=== PATIENT | female | born 1930 | race Caucasian/White ===

== ENCOUNTER 2016-09-12 16:04 | Inpatient (IN) | payer MEDICARE, MEDICAID ==
[~2016-09-12] VITALS: Ht 144.8 cm; Wt 49.4 kg
[~2016-09-12 16:04] MED LIST: ARICEPT10 MG PO; ASPIRIN CHEWABL81 MG PO; CALTRATE 600 +1 EAC1 PO; CLARITIN10 M2 PO; COMBIGAN EYE DRO5 ML OU; COZAAR 50MG TAB50 MG PO; ELIQUIS 2.5 MG2.5 MG PO; GLUCOTROL XL 22.5 MG PO; HYDRALAZINE HCL25 MG PO; IRON325 MG PO; JANUVIA 100 MG100 MG PO; LANTUS100 UNIT/1 SQ; LASIX 40 MG TAB40 MG PO; LIPITOR40 MG PO; LOFIBRA160 MG PO; LOVAZA1 GM PO; METOPROLOL SUC100 MG PO; METOPROLOL TART25 MG PO; MOBIC15 MG PO; NEURONTIN 100100 MG PO; NORVASC 5 MG TAB5 MG PO; PREVACID30 MG PO; RANEXA500 MG PO; SYNTHROID100 MCG PO; SYNTHROID88 MCG PO; TOLTERODINE TART4 MG PO; VITAMIN D2000 UNIT PO
[2016-09-12 17:26] LABS: HEMOGLOBIN 15.2 gm/dl (12.3-15.3); RED BLOOD COUNT 5.05 M/UL (4.00-5.10); WHITE BLOOD COUNT 7.1 K/UL (4.5-11.0)
[2016-09-12 17:55] LABS: BUN/CREATININE RATIO 28 (0-10)
[2016-09-12] MEDS ORDERED: ARICEPT23 MG PO (23:42)
[2016-09-12] MEDS ORDERED: ECOTRIN81 MG PO (23:45)
[2016-09-12] MEDS ORDERED: CRESTOR40 MG PO (23:46)
[2016-09-12] MEDS ORDERED: METFORMIN HCL500 MG PO (23:46)
[2016-09-12] MEDS ORDERED: NAMENDA XR7 MG PO (23:46)
[2016-09-12] MEDS ORDERED: TYLENOL W/CODEIN1 E1 PO (23:47)
[2016-09-12] MEDS ORDERED: VITAMIN D2000 UNIT PO (23:47)
[2016-09-12] MEDS ORDERED: IMDUR ER TAB 3030 MG PO (23:48)
[2016-09-13] MEDS ORDERED: LANSOPRAZOLE30 MG PO (00:07)
[2016-09-13 04:23] LABS: HEMOGLOBIN 14.3 gm/dl (12.3-15.3); RED BLOOD COUNT 4.8 M/UL (4.00-5.10); WHITE BLOOD COUNT 7.3 K/UL (4.5-11.0)
[2016-09-13 04:58] LABS: BUN/CREATININE RATIO 33 (0-10)
[2016-09-13 12:08] LABS: HEMOGLOBIN 13.8 gm/dl (12.3-15.3)
[2016-09-14 04:27] LABS: HEMOGLOBIN 13.4 gm/dl (12.3-15.3); RED BLOOD COUNT 4.51 M/UL (4.00-5.10); WHITE BLOOD COUNT 6.3 K/UL (4.5-11.0)
[2016-09-14 04:31] LABS: BUN/CREATININE RATIO 20 (0-10)
[2016-09-15] MEDS ORDERED: GLUCERNA237 ML PO (11:24)
[2016-09-30] MEDS ORDERED: FOSAMAX70 MG PO (00:34)
== END 2016-09-15 09:00 | disposition home health service (06) | DRG 392 ==
LOC: ER1 16:04 → ZEROF 21:00 → MED SURG 4 21:00
PROVIDERS: Emergency Medicine; Internal Medicine; ADMIT Internal Medicine
DX: A08.4 Viral intestinal infection, unspecified (principal); D68.32 Hemorrhagic disorder due to extrinsic circulating anticoagulants; T45.515A Adverse effect of anticoagulants, initial encounter; I48.0 Paroxysmal atrial fibrillation; E86.0 Dehydration; E11.65 Type 2 diabetes mellitus with hyperglycemia; E03.9 Hypothyroidism, unspecified; D69.6 Thrombocytopenia, unspecified; I10 Essential (primary) hypertension; E78.5 Hyperlipidemia, unspecified; G30.9 Alzheimer's disease, unspecified; F02.80 Dementia in other diseases classified elsewhere, unspecified severity, without behavioral disturbance, psychotic disturbance, mood disturbance, and anxiety; K21.9 Gastro-esophageal reflux disease without esophagitis; R63.4 Abnormal weight loss; Z68.23 Body mass index [BMI] 23.0-23.9, adult; R42 Dizziness and giddiness; R74.0 Nonspecific elevation of levels of transaminase and lactic acid dehydrogenase [LDH]; Z86.73 Personal history of transient ischemic attack (TIA), and cerebral infarction without residual deficits; Z79.01 Long term (current) use of anticoagulants; Z79.4 Long term (current) use of insulin; Z79.84 Long term (current) use of oral hypoglycemic drugs; Z79.891 Long term (current) use of opiate analgesic; Z79.82 Long term (current) use of aspirin; Z79.1 Long term (current) use of non-steroidal anti-inflammatories (NSAID); Z79.899 Other long term (current) drug therapy; Z90.710 Acquired absence of both cervix and uterus; Z90.49 Acquired absence of other specified parts of digestive tract; Z98.49 Cataract extraction status, unspecified eye; Z98.890 Other specified postprocedural states
CPT/HCPCS: 36415; 71010; 80053; 81001; 82272; 82550; 82553; 82962; 83036; 83605; 83874; 83880; 84484; 85014; 85018; 85025; 85027; 85610; 85730; 86850; 86900; 86901; 87040; 87086; 93005; 96374; 99285

== ENCOUNTER 2016-09-30 06:25 | Inpatient (IN) | payer MEDICARE, OTHER ==
[~2016-09-30] VITALS: Ht 144.8 cm; Wt 49.4 kg
[~2016-09-30 06:25] MED LIST changes: +ARICEPT23 MG PO; +CRESTOR40 MG PO; +ECOTRIN81 MG PO; +FOSAMAX70 MG PO; +GLUCERNA237 ML PO; +IMDUR ER TAB 3030 MG PO; +LANSOPRAZOLE30 MG PO; +METFORMIN HCL500 MG PO; +NAMENDA XR7 MG PO; +TYLENOL W/CODEIN1 E1 PO
[2016-09-30 07:22] LABS: HEMOGLOBIN 12.9 gm/dl (12.3-15.3); RED BLOOD COUNT 4.3 M/UL (4.00-5.10); WHITE BLOOD COUNT 7.6 K/UL (4.5-11.0)
[2016-09-30 07:37] LABS: BUN/CREATININE RATIO 48 (0-10)
[2016-09-30 09:21] LABS: CAMPYLOBACTER Not Detected (Negative); CLOSTRIDIUM DIFFICILE TOX A/B Not Detected (Negative); PLESIOMONAS SHIGELLOIDES Not Detected (Negative); SALMONELLA Not Detected (Negative); VIBRIO Not Detected (Negative)
[2016-09-30 09:22] LABS: ASTROVIRUS Not Detected (Negative); CRYPTOSPORIDIUM Not Detected (Negative); E.COLI 0157 Not Detected (Negative); ENTAMOEBA HISTOLYTICA Not Detected (Negative); ENTEROAGGREGATIVE E.COLI (EAEC Not Detected (Negative); ENTEROPATHOGENIC E.COLI (EPEC) Not Detected (Negative); ENTEROTOXIGENIC E.COLI (ETEC) Not Detected (Negative); GIARDIA LAMBLIA Not Detected (Negative); NOROVIRUS GI/GII Not Detected (Negative); ROTOVIRUS A Not Detected (Negative); SAPOVIRUS Not Detected (Negative); SHIG/ENTEROINVAS.ECOLI (EIEC) Not Detected (Negative); SHIGA-LIK TOX.PRO.E.COLI (STEC Not Detected (Negative); VIBRIO CHOLERAE Not Detected (Negative); YERSINIA ENTEROCOLITICA Not Detected (Negative)
[2016-09-30 10:55] LABS: ADENOVIRUS F 40/41 DETECTED (Negative)
[2016-09-30] MEDS ORDERED: COZAAR50 MG PO (17:29)
[2016-09-30] MEDS ORDERED: FENOFIBRATE160 MG PO (17:29)
[2016-09-30] MEDS ORDERED: RANEXA500 MG PO (17:30)
[2016-09-30] MEDS ORDERED: TOLTERODINE TART4 MG PO (17:31)
[2016-09-30] MEDS ORDERED: METFORMIN HCL500 M2 PO (17:32)
[2016-10-01 04:46] LABS: HEMOGLOBIN 11.8 gm/dl (12.3-15.3); RED BLOOD COUNT 4.03 M/UL (4.00-5.10); WHITE BLOOD COUNT 7.6 K/UL (4.5-11.0)
[2016-10-01 05:07] LABS: BUN/CREATININE RATIO 34 (0-10)
[2016-10-02 04:08] LABS: BUN/CREATININE RATIO 36 (0-10)
[2016-10-03 04:14] LABS: HEMOGLOBIN 13.4 gm/dl (12.3-15.3); WHITE BLOOD COUNT 7.4 K/UL (4.5-11.0)
[2016-10-03 04:17] LABS: RED BLOOD COUNT 4.53 M/UL (4.00-5.10)
[2016-10-03 04:32] LABS: BUN/CREATININE RATIO 33 (0-10)
[2016-10-03] MEDS ORDERED: NOVOLOG 10100 UNITS2 SQ (16:08)
== END 2016-10-03 17:00 | disposition home or self-care (01) | DRG 637 ==
LOC: ER1 06:25 → ZEROF 11:15 → MED SURG 4 16:33
PROVIDERS: Emergency Medicine; ADMIT Internal Medicine
DX: E11.649 Type 2 diabetes mellitus with hypoglycemia without coma (principal); G93.40 Encephalopathy, unspecified; E87.0 Hyperosmolality and hypernatremia; Z79.01 Long term (current) use of anticoagulants; F03.90 Unspecified dementia, unspecified severity, without behavioral disturbance, psychotic disturbance, mood disturbance, and anxiety; I10 Essential (primary) hypertension; E78.5 Hyperlipidemia, unspecified; Z79.4 Long term (current) use of insulin; D50.9 Iron deficiency anemia, unspecified; K21.9 Gastro-esophageal reflux disease without esophagitis; I48.0 Paroxysmal atrial fibrillation; Z88.8 Allergy status to other drugs, medicaments and biological substances; Z79.82 Long term (current) use of aspirin; Z79.84 Long term (current) use of oral hypoglycemic drugs; Z79.899 Other long term (current) drug therapy; E03.9 Hypothyroidism, unspecified; I25.10 Atherosclerotic heart disease of native coronary artery without angina pectoris; Z95.5 Presence of coronary angioplasty implant and graft; E83.42 Hypomagnesemia
CPT/HCPCS: 36415; 70450; 71010; 80048; 80053; 82533; 82550; 82553; 82728; 82962; 83540; 83550; 83735; 84439; 84443; 84484; 85025; 85027; 87040; 87177; 87507; 89055; 92610; 93005; 96374; 99285; G0378